=== PATIENT | female | born 1935 | race Caucasian/White ===

== ENCOUNTER 2018-06-05 20:38 | Observation (INO) | payer MEDICARE, OTHER ==
[~2018-06-05] VITALS: Ht 162.6 cm; Wt 163.3 kg
[~2018-06-05 20:38] MED LIST: ABAT250V; ALBU90OI6 INH; ALLO100 PO; ALPR.5; ALPR.5 PO; AMIO200 PO; AMOCLA500 PO; ASCO500; ASCO500 PO; ASCORBIC ACID PO; ASCORBIC ACID SYRUP PO; ASPI325; ASPI325 PO; ASPI325EC PO; ASPI81EC; ATEN25 PO; AUGMENTIN 875-125 PO; AZIT250 PO; Alph-E-Mixed400 UNIT PO; Aspir 8181 MG PO; BENZ100A PO; C Complex1000 MG PO; CALCAVITD PO; CALCAVITDA; CAND16 PO; CAND32; CAND32 PO; CEFU500 PO; CELE200; CEPH500 PO; CIPR500 PO; CLOP75; CONEST.9; CRANBERRY CONC1 EACH PO; CRANBERRY250 MG PO; Cranberry300 MG PO; DOXY100 PO; ENABLEX; ENABLEX PO; ENOX40I SC; EXTRA STRENGTH500 MG PO; Enablex15 MG PO; FISH1000 PO; FLUC150A PO; FURO20 PO; FURO40; FURO40 PO; FURO80; FURO80 PO; GARLIC; GARLIC PO; GNP B-COMPLEX1 EACH PO; GUAN1; GUAN1 PO; GUANFACINE HCL E1 MG PO; GUANFACINE PO; GUAPHELA PO; HYDACE5; HYDGUAL120 PO; HYDMOR2 PO; HYDR-86 PO; ISOMON20 PO; ISOMON30 PO; ITRA100 PO; Isosorbide Dini30 MG PO; Keflex500 MG PO; LACT10SY PO; LEVO750 PO; LEVSOD50; LEVSOD50 PO; LIDO5TP TOP; MAGONATE PO; MAXIMUM DAILY1 EACH PO; MECL12.5 PO; METO50 PO; MULVITA; MULVITA PO; MULVITB&C PO; MULVITMINF; MULVITMINF PO; NIFE30ER; NIFE30ER PO; NITR100CA PO; Norco 5-325 Ta1 EACH PO; OXYACE5T PO; Omeprazole20 M1 PO; PANT40 PO; PHENA100 PO; PHENA200 PO; POTA10T; POTA10T PO; POTA8; POTCHL10ER PO; PRAV20; PRAV20 PO; PRED20 PO; PROACE100 PO; Pacerone100 MG PO; QUIN325; Qualaquin324 MG PO; RXALBOI INH; RXHYD5325 PO; RXTRAM50 PO; SULTRIDS PO; SUPER B COMPLEX PO; Super B Comple150 MG PO; TENEX PO; TENEX1 MG PO; TOCO400; TOCO400 PO; TRAM50 PO; Tenex1 MG GT; VALD20; VERA240ER; VITB100; VITB100 PO; Ventolin Soln3 ML INH; Vitamin D400 UNI2 PO; WARF1 PO; WARF2 PO; Zithromax250 MG PO
[2018-06-05] MEDS ORDERED: Amiodarone HCl200 MG PO (22:36)
[2018-06-05] MEDS ORDERED: ELIQUIS2.5 MG PO (22:36)
[2018-06-05] MEDS ORDERED: ALLO100 PO (22:36)
[2018-06-05] MEDS ORDERED: Tenex1 MG PO (22:37)
[2018-06-05] MEDS ORDERED: PYRI25 (22:37)
[2018-06-05] MEDS ORDERED: CRANBERRY250 MG PO (22:37)
[2018-06-05] MEDS ORDERED: HYDR1TAB94 PO (22:38)
[2018-06-05] MEDS ORDERED: ISOMON20 PO (22:38)
[2018-06-05] MEDS ORDERED: ONDA4ODT MM (22:39)
[2018-06-05] MEDS ORDERED: MECL12.5 PO (22:39)
[2018-06-05] MEDS ORDERED: LEVSOD50 PO (22:39)
[2018-06-05] MEDS ORDERED: PRAV20 PO (22:40)
[2018-06-06 10:04] LABS: Albumin, Blood 2.2 g/dL (3.4-5.0); Albumin/Globulin Ratio 0.8 (0.8-1.8); Bilirubin, Total 0.4 mg/dL (0.1-1.0); Bun/Creatinine Ratio 14.2 (12.0-20.0); Calcium, Blood 6.7 mg/dL (8.5-10.1); Creatinine, Blood 1.2 mg/dL (0.40-1.00); Globulin, Blood 2.9 g/dL (2.2-4.0); Potassium, Blood 4.5 mmol/L (3.5-5.5); Total Protein, Blood 5.1 g/dL (6.4-8.2); Troponin I 0.034 ng/mL (0.000-0.040)
[2018-06-06 10:25] LABS: BASOPHILS ABSOLUTE AUTO 0.02 K/mm3 (0.00-0.23); BASOPHILS PERCENT AUTO 0 % (0-2); EOSINOPHILS ABSOLUTE AUTO 0.12 K/mm3 (0.00-0.68); EOSINOPHILS PERCENT AUTO 1 % (0-6); Hematocrit 31.9 % (33.0-51.0); Hemoglobin 9.7 g/dL (11.5-16.0); IMMATURE GRAN ABSOLUTE AUTO 0.11 K/mm3 (0.00-0.10); IMMATURE GRAN PERCENT AUTO 1 % (0-1); LYMPHOCYTES ABSOLUTE AUTO 1.12 K/mm3 (0.84-5.20); LYMPHOCYTES PERCENT AUTO 13 % (21-46); MONOCYTES ABSOLUTE AUTO 0.61 K/mm3 (0.16-1.47); MONOCYTES PERCENT AUTO 7 % (4-13); Mean Corpuscular HGB 31.1 pg (26.0-34.0); Mean Corpuscular HGB Conc 30.4 g/dL (31.5-36.5); Mean Corpuscular Volume 102 fL (80-100); Mean Platelet Volume 10.6 fL (9.1-12.4); NEUTROPHILS ABSOLUTE AUTO 6.89 K/mm3 (1.96-9.15); NEUTROPHILS PERCENT AUTO 78 % (41-73); Platelet Count 313 K/mm3 (150-400); RDW Standard Deviation 59.4 fL (35.1-46.3); Red Blood Cell Count 3.12 M/mm3 (3.80-5.20); White Blood Cell Count 8.87 K/mm3 (4.00-11.30)
[2018-06-06 11:24] LABS: Source, Urine Clean Catch
[2018-06-06 11:37] LABS: Appearance, Urine Clear (Clear); Bilirubin, Urine Neg (Neg); Blood, Urine 3+ (Neg); Color, Urine Yellow (P-Yellow); Glucose Qualitative, Urine Neg (Neg); Ketones, Urine Neg (Neg); Leukocyte Esterase, Urine 1+ (Neg); Nitrite, Urine Neg (Neg); Protein, Urine 2+ (Neg); Specific Gravity, Urine 1.015 (1.003-1.022); Urobilinogen, Urine NORM (Normal)
[2018-06-06 12:09] LABS: Red Blood Cells, Urine 25-50 /hpf (0-2)
[2018-06-06 12:10] LABS: Bacteria Rare /hpf; Squamous Epithelial Cells Rare /hpf (Few); Transitional Epithelial Cells Few /hpf (0-Rare)
[2018-06-06 17:29] LABS: Hematocrit 29.2 % (33.0-51.0); Hemoglobin 8.9 g/dL (11.5-16.0)
[2018-06-06 17:57] LABS: Percent Saturation 16.1 % (15.0-50.0)
[2018-06-06] MEDS ORDERED: DARIFENACIN ER15 MG PO (20:45)
[2018-06-06] MEDS ORDERED: CHOL10002 PO (20:51)
[2018-06-06] MEDS ORDERED: MIRALAX17 GM PO (20:52)
--- NOTE | 2018-06-06 22:19 | NUR ---
PATIENT ARRIVED TO THE ROOM 335 VIA GURNEY. ORIENTED TO ROOM AND UNIT. ADMISSION COMPLETED. PATIENT ABLE TO ASK QUESTIONS. SHE IS PLEASANT AND COOPERATIVE WITH CARE. STAYING AT BEDSIDE. WILL CONT TO MONITOR.
[2018-06-06 22:26] LABS: Hematocrit 30.4 % (33.0-51.0); Hemoglobin 9.1 g/dL (11.5-16.0)
[2018-06-07 05:32] LABS: Hematocrit 30.3 % (33.0-51.0); Hemoglobin 8.8 g/dL (11.5-16.0); Mean Corpuscular HGB 30.8 pg (26.0-34.0); Mean Platelet Volume 10.7 fL (9.1-12.4); Platelet Count 258 K/mm3 (150-400); RDW Coefficient Variation 16.3 % (11.7-14.2); RDW Standard Deviation 63.3 fL (35.1-46.3); Red Blood Cell Count 2.86 M/mm3 (3.80-5.20); White Blood Cell Count 8.27 K/mm3 (4.00-11.30)
[2018-06-07 05:33] LABS: Mean Corpuscular Volume 106 fL (80-100)
[2018-06-07 06:05] LABS: Bun/Creatinine Ratio 15.7 (12.0-20.0); Calcium, Blood 8.2 mg/dL (8.5-10.1); Creatinine, Blood 1.34 mg/dL (0.40-1.00); Potassium, Blood 4.9 mmol/L (3.5-5.5)
--- NOTE | 2018-06-07 08:03 | NUR ---
SHIFT SUMMARY: NO ACUTE CHANGES TO REPORT THIS SHIFT. PT A&O; CALM AND COOPERATIVE WITH CARE. NO C/O PAIN THIS SHIFT. PT SLEPT SOUNDLY T/O SHIFT. NS @ 100 X1 BAG. WEAKNESS; 1-2 ASSIST TO BSC. REPORT GIVEN TO ONCOMING RN.
--- NOTE | 2018-06-07 18:04 | NUR ---
SHIFT SUMMARY PT HAS BEEN UP TO BSC ONLY AND EXCERCISED WITH PT AND OT. 1 PERSON ASSIST AND ONLY SBA. ABLE TO GET HERSELF UP AND TRANSFERRED WITH GAIT BELT ON AND FWW. REPORTS PAIN PRIMARILY TO RLQ FROM RECENT KIDNEY STONE INJURY AND REMOVAL. AT BEDSIDE THROUGHOUT DAY.
[2018-06-08 05:46] LABS: Hematocrit 29.4 % (33.0-51.0); Hemoglobin 8.8 g/dL (11.5-16.0)
--- NOTE | 2018-06-08 06:09 | NUR ---
*SHIFT SUMMARY* PATIENT ALERT AND ORIENTED. PT'S AT BEDSIDE. AT BEGINING OF THE SHIFT PATIENT REPORTS STILL HAVING PAIN AFTER TYLENOL. THIS RN EDUCATED PATIENT THAT SHE COULD HAVE NORCO IF SHE WANTED TO TRY. PATIENT STATES SHE HAS NEVER HAD THIS MEDICATION BEFORE AND IS SOMETIMES SENSITIVE TO PAIN MEDICATIONS. THIS RN ASKED PATIENT WHAT HAPPENS WHEN SHE TAKES THEM, PATIENT STATES THAT SHE SAYS WEIRD STUFF. THIS RN ASKED IF SHE WANTED TO TRY THE NORCO. PATIENT STATED SHE DID. ADMINISTERED ORDERED, REEVALUATED PATIENT TO SEE IF SHE FELT "WEIRD" PATIENT STATED SHE FELT OK BUT A LITTLE FUNNY AND THE PAIN HAD DECREASED. PATIENT IS A 2 ASSIST TO GET OUT OF THE BED, SHE HAS A HARD TIME MOVING HER LEGS TO THE EDGE OF THE BED. ONCE SHE STANDS SHE IS A 1 ASSIST WITH FWW AND GAIT BELT. PATIENT WAS ON ROOM AIR UNTIL BED TIME. SLIGHT SOB WITH EXERTION. CALL LIGHT WITHIN REACH, BED LOWERED AND LOCKED.
[2018-06-08] MEDS ORDERED: CHOL10002 (11:54)
[2018-06-08] MEDS ORDERED: TRAM50 PO (11:55)
--- NOTE | 2018-06-08 15:13 | NUR ---
REVIEW D'C INSTRUCTIONS. AWARE TO GET RX FILLED. AWARE TO HAVE BLD DRAW IN 2 DAYS. GIVEN NUMBER TO SCHEDULE DRAW AT HER RESIDENCE. VARIOUS SUPPLIES GIVEN--BLUE UNDERPADS, UNDERWEAR, & MAXIPADS. AWARE TO MAKE APPT W/PCP AND UROLOGIST. GIVEN NAMES AND NUMBERS OF 2 UROLOGISTS IN [place]& 2 IN [place]. RONIT CAME AND SUPPLIED PATIENT WITH PORTABLE OXYGEN. FILM AND VIDEO EDITOR TALKED TO PATIENT ABOUT WHEELCHAIR AND PATIENT STS GRANDSON WILL BRING IN HERS FROM HER VAN. GRANDSON BROUGHT IN CLOTHES. DOWN IN POV WITH TRIM STENCIL MAKER AND MULTIPLE RELATIVES. ASSISTED INTO VEHICLE. PATIENT HAS ARRANGED TO STAY AT [facility].
== END 2018-06-08 15:00 | disposition home health service (06) ==
LOC: ER 20:38 → ERHOLD 06-06 13:51 → MEDS 06-06 20:07
PROVIDERS: Emergency Medicine; ADMIT Internal Medicine
DX: R53.1 Weakness (principal); S37.011A Minor contusion of right kidney, initial encounter; J96.11 Chronic respiratory failure with hypoxia; I13.0 Hypertensive heart and chronic kidney disease with heart failure and stage 1 through stage 4 chronic kidney disease, or unspecified chronic kidney disease; I50.32 Chronic diastolic (congestive) heart failure; N18.3 Chronic kidney disease, stage 3 (moderate); D63.1 Anemia in chronic kidney disease; I48.2 Chronic atrial fibrillation; I73.9 Peripheral vascular disease, unspecified; C50.912 Malignant neoplasm of unspecified site of left female breast; D50.9 Iron deficiency anemia, unspecified; E87.1 Hypo-osmolality and hyponatremia; E03.9 Hypothyroidism, unspecified; E78.5 Hyperlipidemia, unspecified; E66.2 Morbid (severe) obesity with alveolar hypoventilation; E87.0 Hyperosmolality and hypernatremia; M10.9 Gout, unspecified; Z85.118 Personal history of other malignant neoplasm of bronchus and lung; Z86.73 Personal history of transient ischemic attack (TIA), and cerebral infarction without residual deficits; Z90.2 Acquired absence of lung [part of]; Z79.01 Long term (current) use of anticoagulants; Z79.02 Long term (current) use of antithrombotics/antiplatelets; Z79.899 Other long term (current) drug therapy; Z88.5 Allergy status to narcotic agent; Z99.81 Dependence on supplemental oxygen; Z98.890 Other specified postprocedural states; Z95.0 Presence of cardiac pacemaker; Z68.44 Body mass index [BMI] 60.0-69.9, adult
CPT/HCPCS: 36415; 71045; 76770; 80048; 80053; 81001; 82607; 82728; 82746; 83540; 83550; 84443; 84484; 85014; 85018; 85025; 85027; 87077; 87086; 87186; 93005; 93010; 96360; 96361; 97161; 97166; 97530; 97535; 99285-25; G0378; J7030; P9612

== ENCOUNTER → 2018-06-28 | Outpatient (CLI) | payer MEDICARE, OTHER ==
[~2018-06-28] MED LIST changes: +Amiodarone HCl200 MG PO; +CHOL10002; +CHOL10002 PO; +DARIFENACIN ER15 MG PO; +ELIQUIS2.5 MG PO; +HYDR1TAB94 PO; +MIRALAX17 GM PO; +ONDA4ODT MM; +PYRI25; +Tenex1 MG PO
[2018-06-28 09:56] LABS: Bilirubin, Urine Neg (Neg); Blood, Urine 5+ (Neg); Glucose Qualitative, Urine Neg (Neg); Ketones, Urine Neg (Neg); Leukocyte Esterase, Urine 1+ (Neg); Nitrite, Urine Neg (Neg); Protein, Urine 2+ (Neg); Urobilinogen, Urine NORM (Normal)
[2018-06-28 10:08] LABS: Appearance, Urine Hazy (Clear); Color, Urine Yellow (P-Yellow)
[2018-06-28 10:10] LABS: Amorphous Mod (0-Heavy); Bacteria Mod /hpf; Red Blood Cells, Urine TNTC /hpf (0-2); Squamous Epithelial Cells Not Seen /hpf (Few)
== END ==
LOC: LAB 09:14 → LAB SHORT 09:14
PROVIDERS: Family Medicine
DX: N30.01 Acute cystitis with hematuria (principal)
CPT/HCPCS: 81001; 87077; 87086; 87186

== ENCOUNTER 2018-08-12 07:00 | Day surgery (SDC) | payer MEDICARE, OTHER | END 2018-08-12 23:03 | disposition home or self-care (01) | LOC: MOI US 07:00 | DX: C50.112 Malignant neoplasm of central portion of left female breast (principal); C77.3 Secondary and unspecified malignant neoplasm of axilla and upper limb lymph nodes; Z17.0 Estrogen receptor positive status [ER+] | CPT/HCPCS: 38505; 76942; 88305; 88360; A4648 ==

== ENCOUNTER → 2018-09-09 | Outpatient (CLI) | payer MEDICARE, OTHER ==
[~2018-09-09] MED LIST changes: +LETR2.5 PO; +MOTION RELIEF25 MG PO; +Micro-K10 MEQ PO; +Pravastatin Sod80 MG PO; +RAYALDEE30 MCG PO
[2018-09-09 16:00] LABS: BASOPHILS ABSOLUTE AUTO 0.01 K/mm3 (0.00-0.23); BASOPHILS PERCENT AUTO 0 % (0-2); EOSINOPHILS PERCENT AUTO 2 % (0-6); Hematocrit 40.3 % (33.0-51.0); Hemoglobin 13.4 g/dL (11.5-16.0); IMMATURE GRAN ABSOLUTE AUTO 0.04 K/mm3 (0.00-0.10); IMMATURE GRAN PERCENT AUTO 1 % (0-1); LYMPHOCYTES PERCENT AUTO 25 % (21-46); MONOCYTES ABSOLUTE AUTO 0.88 K/mm3 (0.16-1.47); MONOCYTES PERCENT AUTO 10 % (4-13); Mean Corpuscular HGB 30.7 pg (26.0-34.0); Mean Corpuscular HGB Conc 33.3 g/dL (31.5-36.5); Mean Platelet Volume 10.8 fL (9.1-12.4); NEUTROPHILS ABSOLUTE AUTO 5.44 K/mm3 (1.96-9.15); NEUTROPHILS PERCENT AUTO 62 % (41-73); Platelet Count 203 K/mm3 (150-400); RDW Coefficient Variation 14.6 % (11.7-14.2); RDW Standard Deviation 49.9 fL (35.1-46.3); Red Blood Cell Count 4.37 M/mm3 (3.80-5.20); White Blood Cell Count 8.77 K/mm3 (4.00-11.30)
[2018-09-09 16:01] LABS: Mean Corpuscular Volume 92 fL (80-100)
[2018-09-09 16:02] LABS: Bun/Creatinine Ratio 16.1 (12.0-20.0); Calcium, Blood 9.5 mg/dL (8.5-10.1); Creatinine, Blood 1.55 mg/dL (0.40-1.00); Potassium, Blood 4.5 mmol/L (3.5-5.5)
== END | disposition home or self-care (01) ==
LOC: LAB EV 15:52 → LAB SHORT 15:52
PROVIDERS: Physician Assistant Surgical
DX: J18.9 Pneumonia, unspecified organism (principal)
CPT/HCPCS: 80048; 85025

== ENCOUNTER 2018-09-12 18:08 | Inpatient (IN) | payer MEDICARE, OTHER ==
[~2018-09-12] VITALS: Ht 162.6 cm; Wt 128.1 kg
[~2018-09-12 18:08] MED LIST changes: -LETR2.5 PO; -Micro-K10 MEQ PO; -Pravastatin Sod80 MG PO; -RAYALDEE30 MCG PO
[2018-09-12 19:04] LABS: BASOPHILS ABSOLUTE AUTO 0.01 K/mm3 (0.00-0.23); BASOPHILS PERCENT AUTO 0 % (0-2); EOSINOPHILS ABSOLUTE AUTO 0.07 K/mm3 (0.00-0.68); EOSINOPHILS PERCENT AUTO 1 % (0-6); Hemoglobin 11.9 g/dL (11.5-16.0); IMMATURE GRAN ABSOLUTE AUTO 0.05 K/mm3 (0.00-0.10); IMMATURE GRAN PERCENT AUTO 1 % (0-1); LYMPHOCYTES ABSOLUTE AUTO 1.43 K/mm3 (0.84-5.20); LYMPHOCYTES PERCENT AUTO 17 % (21-46); MONOCYTES ABSOLUTE AUTO 0.86 K/mm3 (0.16-1.47); MONOCYTES PERCENT AUTO 10 % (4-13); Mean Corpuscular HGB Conc 32.2 g/dL (31.5-36.5); Mean Platelet Volume 10.8 fL (9.1-12.4); NEUTROPHILS ABSOLUTE AUTO 6.06 K/mm3 (1.96-9.15); NEUTROPHILS PERCENT AUTO 72 % (41-73); Platelet Count 195 K/mm3 (150-400); RDW Coefficient Variation 14.7 % (11.7-14.2); RDW Standard Deviation 51.9 fL (35.1-46.3); Red Blood Cell Count 3.84 M/mm3 (3.80-5.20); White Blood Cell Count 8.48 K/mm3 (4.00-11.30)
[2018-09-12 19:06] LABS: Mean Corpuscular Volume 96 fL (80-100)
[2018-09-12 19:29] LABS: Albumin, Blood 3.2 g/dL (3.4-5.0); Albumin/Globulin Ratio 0.7 (0.8-1.8); Bilirubin, Total 0.5 mg/dL (0.1-1.0); Bun/Creatinine Ratio 14.7 (12.0-20.0); Calcium, Blood 9.3 mg/dL (8.5-10.1); Creatinine, Blood 1.56 mg/dL (0.40-1.00); Globulin, Blood 4.4 g/dL (2.2-4.0); Potassium, Blood 4.7 mmol/L (3.5-5.5); Total Protein, Blood 7.6 g/dL (6.4-8.2)
[2018-09-12] MEDS ORDERED: Norco 5-325 Ta1 EACH PO (20:07)
[2018-09-12] MEDS ORDERED: NIFE30ER PO (20:11)
[2018-09-12] MEDS ORDERED: FURO20 PO (20:11)
[2018-09-12] MEDS ORDERED: Micro-K10 MEQ PO (20:12)
[2018-09-12] MEDS ORDERED: LETR2.5 PO (20:13)
[2018-09-12] MEDS ORDERED: Pravastatin Sod80 MG PO (20:53)
[2018-09-12] MEDS ORDERED: RAYALDEE30 MCG PO (20:54)
[2018-09-13 04:04] LABS: Adenovirus Not Detected (NOT DETECT); Bordetella pertussis Not Detected (NOT DETECT); Chlamydophila pneumoniae Not Detected (NOT DETECT); Coronavirus 229E Not Detected (NOT DETECT); Coronavirus HKU1 Not Detected (NOT DETECT); Coronavirus NL63 Not Detected (NOT DETECT); Coronavirus OC43 Not Detected (NOT DETECT); Human Metapneumovirus Not Detected (NOT DETECT); Human Rhinovirus/Enterovirus Detected (NOT DETECT); Influenza A Not Detected (NOT DETECT); Influenza A/2009-H1 Not Detected (NOT DETECT); Influenza A/H1 Not Detected (NOT DETECT); Influenza A/H3 Not Detected (NOT DETECT); Influenza B Not Detected (NOT DETECT); Mycoplasma pneumoniae Not Detected (NOT DETECT); Parainfluenza Virus 1 Not Detected (NOT DETECT); Parainfluenza Virus 2 Not Detected (NOT DETECT); Parainfluenza Virus 3 Not Detected (NOT DETECT); Parainfluenza Virus 4 Not Detected (NOT DETECT); Respiratory Syncytial Virus Not Detected (NOT DETECT)
[2018-09-13 05:14] LABS: Bun/Creatinine Ratio 16.3 (12.0-20.0); Calcium, Blood 9.1 mg/dL (8.5-10.1); Creatinine, Blood 1.66 mg/dL (0.40-1.00); Potassium, Blood 4.8 mmol/L (3.5-5.5)
[2018-09-14] MEDS ORDERED: ALBU2.5V5 INH (11:32)
[2018-09-14] MEDS ORDERED: BENZ100A PO (11:33)
[2018-09-14] MEDS ORDERED: ROBITUSSIN COU237 ML PO (11:34)
[2018-09-14] MEDS ORDERED: ALBU3IS INH (11:35)
[2018-09-14] MEDS ORDERED: MUCUS ER600 MG PO (11:35)
[2018-09-14] MEDS ORDERED: LEVO750 PO (11:36)
[2018-09-14] MEDS ORDERED: PRED10 PO (11:38)
== END 2018-09-14 14:54 | disposition home or self-care (01) | DRG 193 ==
LOC: ER 18:08 → MEDS 22:16 → ENPENDDIS 09-14 10:53 → MEDS 09-14 14:54
PROVIDERS: Physician Assistant; ADMIT Internal Medicine
DX: J18.1 Lobar pneumonia, unspecified organism (principal); J96.21 Acute and chronic respiratory failure with hypoxia; C34.31 Malignant neoplasm of lower lobe, right bronchus or lung; J44.1 Chronic obstructive pulmonary disease with (acute) exacerbation; J44.0 Chronic obstructive pulmonary disease with (acute) lower respiratory infection; I13.0 Hypertensive heart and chronic kidney disease with heart failure and stage 1 through stage 4 chronic kidney disease, or unspecified chronic kidney disease; I50.32 Chronic diastolic (congestive) heart failure; J06.9 Acute upper respiratory infection, unspecified; B97.19 Other enterovirus as the cause of diseases classified elsewhere; Z85.3 Personal history of malignant neoplasm of breast; I48.2 Chronic atrial fibrillation; Z86.73 Personal history of transient ischemic attack (TIA), and cerebral infarction without residual deficits; N18.3 Chronic kidney disease, stage 3 (moderate); E66.9 Obesity, unspecified; Z99.81 Dependence on supplemental oxygen; Z87.891 Personal history of nicotine dependence; Z90.2 Acquired absence of lung [part of]
CPT/HCPCS: 36415; 71046; 80048; 80053; 83880; 84145; 85025; 87070; 87205; 87486; 87581; 87633; 87798; 93005; 93010; 94640; 94760; 94761; 96374; 99285-25; C9113; J1956; J2930

== ENCOUNTER 2018-10-18 07:52 | Day surgery (SDC) | payer MEDICARE, OTHER ==
[~2018-10-18] VITALS: Ht 162.6 cm; Wt 127.2 kg
[~2018-10-18 07:52] MED LIST changes: +ALBU2.5V5 INH; +ALBU3IS INH; +LETR2.5 PO; +MUCUS ER600 MG PO; +Micro-K10 MEQ PO; +PRED10 PO; +Pravastatin Sod80 MG PO; +RAYALDEE30 MCG PO; +ROBITUSSIN COU237 ML PO
--- NOTE | 2018-10-18 10:48 | NUR ---
Arrived via electric wheelchair to Day Surgery. History, Chart, Medications and Allergies reviewed before start of procedure. Patient confirms NPO status and agrees with scheduled surgery. Pre-Op teaching done. Pt verbalizes understanding.
[2018-10-18 11:19] LABS: Bun/Creatinine Ratio 14.4 (12.0-20.0); Calcium, Blood 9.2 mg/dL (8.5-10.1); Creatinine, Blood 1.39 mg/dL (0.40-1.00); Potassium, Blood 4.4 mmol/L (3.5-5.5)
--- NOTE | 2018-10-18 12:15 | NUR ---
RECEIVED REPORT FROM DR LYNCH. PT STATES THAT SHE IS GOING TO BE SICK. RN REMOVED FT AND WAS ASSISTED IN SITTING PT UP. PT CALMED BACK DOWN. RN WAS TOLD THAT PT WAS CLAUSTROPHOBIC. AFTER RN HAD REMOVED F.T. PT DENIED BEING SICK AND WAS RESITNG QUIETLY. PT DENIES PAIN/NAUSEA. 2L [address]
--- NOTE | 2018-10-18 12:46 | NUR ---
1238 4MG IV ZOFRAN WAS GIVEN TO PT WHEN PT STATED " I AM GOING TO BE SICK" RN ASKED PT IF MEDICATION HAS HELPED AND PT STATED "I HOPE SO". PT STATED YES I DO FEEL BETTER.
--- NOTE | 2018-10-18 12:49 | NUR ---
PT MOUTH WAS SWABBED, PT SITTING UP WITH EYES CLOSED. RIGHT NOW FEELING BETTER.
--- NOTE | 2018-10-18 13:27 | NUR ---
TOOK OVER CARE AND RECIEVED RPORT FROM Kandy TINAJERO AT 1310 VSS HOOKED UP TO WARM BLAKET WITH BLOWER. PATIENT REMINDED TO TAKE DEEP BREATHS [facility] HEARING ALARM GOING OFF FOR BELOW 90 % DOES NOT WANT TO WEAR 02 STATES FEELS CLAUSTROPHOBIC WITH IT ON. DENIES ANYTHING TO EAT OR DRINK STATES NAUSEA IS BETTER AND IS HAVING PAIN BUT DOES NOT WANTING ANY PAIN RX
--- NOTE | 2018-10-18 13:49 | NUR ---
STATES SHE IS FEELING BETTER, DENIES ANY NEED FOR RX FOR PAIN OR NAUSEA BUT STATES BOTH IS BETTER DOES NOT FEEL READY TO GO AT THIS KATELYN
--- NOTE | 2018-10-18 14:47 | NUR ---
Discharge instructions reviewed with patient. Patient verbalizes understanding. Copy given to patient to take home. Patient States Post-Procedure ride home has been arranged. Discharged via wheelchair to private car for ride home. GUILLERMO SENT HOME WITH DRAIN CARE INSTRUCITONS AFTER TEACHING PATIENT DAUGHTER AND HOW TO CARE FOR DRAIN AND EMPTY DRAIN. ANSWERED ALL QUESTIONS.
== END 2018-10-18 22:53 | disposition home or self-care (01) ==
LOC: RAD 07:52 → ORSCMMR 07:52 → RAD 22:53
PROVIDERS: Surgery
PROC: 05HM33Z Insertion of Infusion Device into Right Internal Jugular Vein, Percutaneous Approach (ICD-10-PCS; principal; 2018-10-18 10:30)
PROC: 07B60ZX Excision of Left Axillary Lymphatic, Open Approach, Diagnostic (ICD-10-PCS; principal; 2018-10-18 10:30)
PROC: B5131ZA Fluoroscopy of Right Jugular Veins using Low Osmolar Contrast, Guidance (ICD-10-PCS; principal; 2018-10-18 10:30)
DX: C77.3 Secondary and unspecified malignant neoplasm of axilla and upper limb lymph nodes (principal); I10 Essential (primary) hypertension; Z95.828 Presence of other vascular implants and grafts; I48.91 Unspecified atrial fibrillation; E03.9 Hypothyroidism, unspecified; Z79.899 Other long term (current) drug therapy; E66.01 Morbid (severe) obesity due to excess calories; Z68.42 Body mass index [BMI] 45.0-49.9, adult
CPT/HCPCS: 19285; 36415; 77001; 80048; 88305; C1788; J0690; J1100; J1642; J2405; J2704; J2765; J3010; J7120

== ENCOUNTER 2020-02-20 08:33 | Day surgery (SDC) | payer MEDICARE, OTHER ==
[~2020-02-20] VITALS: Ht 162.6 cm; Wt 123.3 kg
[~2020-02-20 08:33] MED LIST changes: +CEFP200 PO; +LEVSOD100 PO; +LORA.5 PO; -Micro-K10 MEQ PO; +Pyridium100 MG PO
--- NOTE | 2020-02-20 10:37 | NUR ---
02/20/20 [facility] Fernando Cota INSTRUMENTS FOR COUNT.
== END 2020-02-20 11:00 | disposition home or self-care (01) ==
LOC: ORSCSDS 08:33
PROVIDERS: Ophthalmology
PROC: 08133Z4 Bypass Left Anterior Chamber to Sclera, Percutaneous Approach (ICD-10-PCS; 2020-02-20)
PROC: 08RK3JZ Replacement of Left Lens with Synthetic Substitute, Percutaneous Approach (ICD-10-PCS; principal; 2020-02-20 10:00)
DX: H25.12 Age-related nuclear cataract, left eye (principal); H40.1120 Primary open-angle glaucoma, left eye, stage unspecified; I10 Essential (primary) hypertension; E66.01 Morbid (severe) obesity due to excess calories; Z68.42 Body mass index [BMI] 45.0-49.9, adult; Z79.01 Long term (current) use of anticoagulants; Z79.899 Other long term (current) drug therapy
CPT/HCPCS: J2001; J2250; J3010; J3301; J7040; V2632

== ENCOUNTER → 2020-03-05 | Outpatient (CLI) | payer MEDICARE, OTHER | END | disposition home or self-care (01) | LOC: LAB SHORT 15:39 → PLD 15:39 | DX: C77.3 Secondary and unspecified malignant neoplasm of axilla and upper limb lymph nodes (principal); Z85.3 Personal history of malignant neoplasm of breast; Z17.0 Estrogen receptor positive status [ER+] | CPT/HCPCS: 88305; 88360 ==

== ENCOUNTER 2020-03-26 10:00 | Day surgery (SDC) | payer MEDICARE, OTHER ==
[~2020-03-26] VITALS: Ht 162.6 cm; Wt 123.8 kg
[2020-03-26 09:37] LABS: Bun/Creatinine Ratio 17.5 (12.0-20.0); Calcium, Blood 9.2 mg/dL (8.5-10.1); Creatinine, Blood 1.37 mg/dL (0.40-1.00); Potassium, Blood 4.2 mmol/L (3.5-5.5)
== END 2020-03-26 12:16 | disposition home or self-care (01) ==
LOC: ORSCSDS 10:00
PROVIDERS: Ophthalmology; Surgery
PROC: 08RJ3JZ Replacement of Right Lens with Synthetic Substitute, Percutaneous Approach (ICD-10-PCS; principal; 2020-03-26 11:30)
DX: H25.11 Age-related nuclear cataract, right eye (principal); I10 Essential (primary) hypertension; Z86.73 Personal history of transient ischemic attack (TIA), and cerebral infarction without residual deficits; H40.1132 Primary open-angle glaucoma, bilateral, moderate stage; E66.9 Obesity, unspecified; Z68.42 Body mass index [BMI] 45.0-49.9, adult; Z79.01 Long term (current) use of anticoagulants; Z79.899 Other long term (current) drug therapy
CPT/HCPCS: 36415; 80048; J2001; J2250; J3010; J3301; J7040; V2632

== ENCOUNTER 2020-03-27 11:59 | Day surgery (SDC) | payer MEDICARE, OTHER ==
[~2020-03-27] VITALS: Ht 162.6 cm; Wt 122.9 kg
--- NOTE | 2020-03-27 12:33 | NUR ---
03/27/20 1233 CHRISTOPHER STEWART MULTIPLE IV ATTEMPTS.
--- NOTE | 2020-03-27 15:17 | NUR ---
03/27/20 1517 Teaberry,Hermila CHEST XRAY FOR MEDIPORT WAS DONE AND PLACEMENT VERIFIED BY DR. TIJERINA.
== END 2020-03-27 15:13 | disposition home or self-care (01) ==
LOC: ORSCSDS 11:59
DX: C50.912 Malignant neoplasm of unspecified site of left female breast (principal); I10 Essential (primary) hypertension; I48.91 Unspecified atrial fibrillation; Z79.01 Long term (current) use of anticoagulants; Z86.73 Personal history of transient ischemic attack (TIA), and cerebral infarction without residual deficits; E66.01 Morbid (severe) obesity due to excess calories; Z68.42 Body mass index [BMI] 45.0-49.9, adult; Z85.118 Personal history of other malignant neoplasm of bronchus and lung; Z79.899 Other long term (current) drug therapy
CPT/HCPCS: 77001; C1788; J0690; J1100; J1642; J2405; J2704; J3010

== ENCOUNTER 2020-04-25 09:16 | Emergency (ER) | payer MEDICARE, OTHER ==
[~2020-04-25] VITALS: Ht 162.6 cm; Wt 121.6 kg
[2020-04-25 10:09] LABS: BASOPHILS ABSOLUTE AUTO 0.01 K/mm3 (0.00-0.23); BASOPHILS PERCENT AUTO 0 % (0-2); EOSINOPHILS PERCENT AUTO 0 % (0-6); Hematocrit 42.3 % (33.0-51.0); Hemoglobin 14.2 g/dL (11.5-16.0); IMMATURE GRAN ABSOLUTE AUTO 0.03 K/mm3 (0.00-0.10); IMMATURE GRAN PERCENT AUTO 0 % (0-1); LYMPHOCYTES ABSOLUTE AUTO 1.15 K/mm3 (0.84-5.20); LYMPHOCYTES PERCENT AUTO 16 % (21-46); MONOCYTES ABSOLUTE AUTO 0.61 K/mm3 (0.16-1.47); MONOCYTES PERCENT AUTO 8 % (4-13); Mean Corpuscular HGB 32.4 pg (26.0-34.0); Mean Corpuscular HGB Conc 33.6 g/dL (31.5-36.5); Mean Corpuscular Volume 97 fL (80-100); Mean Platelet Volume 10.9 fL (9.1-12.4); NEUTROPHILS ABSOLUTE AUTO 5.61 K/mm3 (1.96-9.15); NEUTROPHILS PERCENT AUTO 76 % (41-73); Platelet Count 159 K/mm3 (150-400); RDW Coefficient Variation 13.8 % (11.7-14.2); RDW Standard Deviation 49.2 fL (35.1-46.3); Red Blood Cell Count 4.38 M/mm3 (3.80-5.20); White Blood Cell Count 7.41 K/mm3 (4.00-11.30)
[2020-04-25 10:37] LABS: Albumin, Blood 3.3 g/dL (3.4-5.0); Albumin/Globulin Ratio 0.9 (0.8-1.8); Bilirubin, Total 0.5 mg/dL (0.1-1.0); Bun/Creatinine Ratio 18.2 (12.0-20.0); Calcium, Blood 8.5 mg/dL (8.5-10.1); Creatinine, Blood 1.1 mg/dL (0.40-1.00); Globulin, Blood 3.8 g/dL (2.2-4.0); Potassium, Blood 3.9 mmol/L (3.5-5.5); Total Protein, Blood 7.1 g/dL (6.4-8.2)
[2020-04-25 11:52] LABS: Source, Urine Clean Catch
[2020-04-25 11:57] LABS: Bilirubin, Urine Neg (Neg); Blood, Urine Neg (Neg); Glucose Qualitative, Urine Neg (Neg); Ketones, Urine Neg (Neg); Leukocyte Esterase, Urine Neg (Neg); Nitrite, Urine Neg (Neg); Protein, Urine 2+ (Neg); Specific Gravity, Urine 1.015 (1.003-1.022); Urobilinogen, Urine NORM (Normal); pH, Urine 6.5 (5.0-8.0)
[2020-04-25 12:03] LABS: Appearance, Urine Clear (Clear); Color, Urine Yellow (P-Yellow)
[2020-04-25 12:08] LABS: Bacteria Few /hpf; Red Blood Cells, Urine 0-2 /hpf (0-2); Squamous Epithelial Cells Rare /hpf (Few); White Blood Cells, Urine 0-2 /hpf (0-5)
[2020-04-25] MEDS ORDERED: TRAM50 PO (13:48)
== END 2020-04-25 14:45 | disposition home or self-care (01) ==
LOC: ER 09:16
PROVIDERS: Emergency Medicine
DX: R10.9 Unspecified abdominal pain (principal); I48.20 Chronic atrial fibrillation, unspecified; J44.9 Chronic obstructive pulmonary disease, unspecified; I11.0 Hypertensive heart disease with heart failure; I50.32 Chronic diastolic (congestive) heart failure; Z79.01 Long term (current) use of anticoagulants; Z79.899 Other long term (current) drug therapy; Z88.5 Allergy status to narcotic agent; Z86.718 Personal history of other venous thrombosis and embolism; Z86.73 Personal history of transient ischemic attack (TIA), and cerebral infarction without residual deficits
CPT/HCPCS: 36415; 51701; 74176; 80053; 81001; 83690; 85025; 93005; 93010; 99284-25

== ENCOUNTER 2020-11-21 12:14 | Inpatient (IN) | payer MEDICARE, OTHER ==
[~2020-11-21] VITALS: Ht 162.6 cm; Wt 120.3 kg
[~2020-11-21 12:14] MED LIST changes: -ELIQUIS2.5 MG PO; +ELIQUIS5 M2 PO; +EUTHYROX50 MCG PO; -LEVSOD100 PO; +PRAVASTATIN SOD40 MG PO; -Pravastatin Sod80 MG PO
[2020-11-21 13:12] LABS: BASOPHILS ABSOLUTE AUTO 0.01 K/mm3 (0.00-0.23); BASOPHILS PERCENT AUTO 0 % (0-2); EOSINOPHILS PERCENT AUTO 0 % (0-6); Hematocrit 41.7 % (33.0-51.0); Hemoglobin 13.6 g/dL (11.5-16.0); IMMATURE GRAN ABSOLUTE AUTO 0.02 K/mm3 (0.00-0.10); IMMATURE GRAN PERCENT AUTO 0 % (0-1); LYMPHOCYTES ABSOLUTE AUTO 1.09 K/mm3 (0.84-5.20); LYMPHOCYTES PERCENT AUTO 20 % (21-46); MONOCYTES ABSOLUTE AUTO 0.81 K/mm3 (0.16-1.47); MONOCYTES PERCENT AUTO 15 % (4-13); Mean Corpuscular HGB 31.3 pg (26.0-34.0); Mean Corpuscular HGB Conc 32.6 g/dL (31.5-36.5); Mean Corpuscular Volume 96 fL (80-100); NEUTROPHILS ABSOLUTE AUTO 3.67 K/mm3 (1.96-9.15); NEUTROPHILS PERCENT AUTO 65 % (41-73); Platelet Count 95 K/mm3 (150-400); RDW Coefficient Variation 16.3 % (11.7-14.2); RDW Standard Deviation 57.3 fL (35.1-46.3); Red Blood Cell Count 4.35 M/mm3 (3.80-5.20)
[2020-11-21 13:43] LABS: Alanine Aminotransfer (ALT/SGP 36 U/L (12-78); Albumin, Blood 3.1 g/dL (3.4-5.0); Albumin/Globulin Ratio 0.8 (0.8-1.8); Alk Phos 178 U/L (50-136); Anion Gap 5 mmol/L (6-16); Aspartate Aminotrans (AST/SGOT 64 U/L (12-37); Bilirubin, Total 0.8 mg/dL (0.1-1.0); Blood Urea Nitrogen 16 mg/dL (8-24); Bun/Creatinine Ratio 12.6 (12.0-20.0); CO2, Blood 28 mmol/L (21-32); Calcium, Blood 8.6 mg/dL (8.5-10.1); Chloride, Blood 107 mmol/L (98-108); Creatinine, Blood 1.27 mg/dL (0.40-1.00); Glomerular Filtration Rate 40 (60-); Glucose, Blood 103 mg/dL (70-99); Potassium, Blood 4.3 mmol/L (3.5-5.5); Sodium, Blood 140 mmol/L (136-145); Total Protein, Blood 7.1 g/dL (6.4-8.2); Troponin I <0.015 ng/mL (0.000-0.040)
[2020-11-21] MEDS ORDERED: TIMOLOL MALEATE5 ML RIGHTEYE (17:58)
[2020-11-22 05:31] LABS: BASOPHILS PERCENT AUTO 0 % (0-2); EOSINOPHILS PERCENT AUTO 0 % (0-6); Hematocrit 39.5 % (33.0-51.0); Hemoglobin 12.9 g/dL (11.5-16.0); IMMATURE GRAN ABSOLUTE AUTO 0.01 K/mm3 (0.00-0.10); IMMATURE GRAN PERCENT AUTO 0 % (0-1); LYMPHOCYTES ABSOLUTE AUTO 0.75 K/mm3 (0.84-5.20); LYMPHOCYTES PERCENT AUTO 24 % (21-46); MONOCYTES ABSOLUTE AUTO 0.25 K/mm3 (0.16-1.47); MONOCYTES PERCENT AUTO 8 % (4-13); Mean Corpuscular HGB 31.2 pg (26.0-34.0); Mean Corpuscular HGB Conc 32.7 g/dL (31.5-36.5); Mean Corpuscular Volume 96 fL (80-100); Mean Platelet Volume 11.4 fL (9.1-12.4); NEUTROPHILS ABSOLUTE AUTO 2.16 K/mm3 (1.96-9.15); NEUTROPHILS PERCENT AUTO 68 % (41-73); Platelet Count 83 K/mm3 (150-400); RDW Coefficient Variation 15.9 % (11.7-14.2); RDW Standard Deviation 56.2 fL (35.1-46.3); Red Blood Cell Count 4.13 M/mm3 (3.80-5.20); White Blood Cell Count 3.17 K/mm3 (4.00-11.30)
--- NOTE | 2020-11-22 05:36 | NUR ---
SHIFT SUMMARY: PATIENT ADMITTED TO THE FLOOR LAST NIGHT FOR COVID-19. SHE GOT TESTED 2 DAYS AGO AT A LOCAL CLINIC WHICH WAS POSITIVE. FOR THE LAST THREE DAYS SHE HAS BEEN GETTING WEAKER, SOB, FEVER, LIGHTHEADED, WITH SOME PLEURIC PAIN. EXTENSIVE HX THAT INCLUDES CHF, COPD, AFIB, AND LUNG CANCER, CURRENTLY GETTING CHEMOTHERAPY. YESTERDAY SHE SPIKED A FEVER AT WHICH SHE WAS SUPPOSE TO HAVE TREATMENT BUT THEY SENT HER HERE INSTEAD. AOX3, BASELINE IS MOTERIZED WC R/T HX OF CVA. LS: GOOD INSPIRATION WITH RALES ON EXPIRATION. COUGH NON-PRODUCTIVE. VERY LIGHTHEADED EVEN GETTING TO THE SIDE OF BED AND NOT ABLE TO KEEP BALANCE, NAUSEA WITH SOME DRY HEAVES T/O DIZZY. POOR APPETITE, HEADACHES. CONTINENT. VS WNL, AFEBRILE. GFR 40. SHE IS VACCINATED WITH 2 DOSES OF MODERNA. DOES WEAR O2 AT [facility] BUT RECENTLY HAS BEEN CONTINUOUS NOW ON 4 LITERS WITH SATS HOLDING ABOVE 90. REPEAT COVID TEST SENT. CALL LIGHT IS IN REACH. BED ALARM IS ON.
[2020-11-22 05:57] LABS: Albumin, Blood 2.8 g/dL (3.4-5.0); Albumin/Globulin Ratio 0.8 (0.8-1.8); Bilirubin, Total 0.7 mg/dL (0.1-1.0); Bun/Creatinine Ratio 15.8 (12.0-20.0); Calcium, Blood 8.1 mg/dL (8.5-10.1); Creatinine, Blood 1.2 mg/dL (0.40-1.00); Globulin, Blood 3.7 g/dL (2.2-4.0); Magnesium, Blood 2.4 mg/dL (1.6-2.4); Potassium, Blood 3.8 mmol/L (3.5-5.5); Total Protein, Blood 6.5 g/dL (6.4-8.2)
[2020-11-22 06:28] LABS: SARS-Cov-2 (COVID-19) PCR, MMC POSITIVE (NEGATIVE)
[2020-11-23 05:39] LABS: BASOPHILS ABSOLUTE AUTO 0.01 K/mm3 (0.00-0.23); BASOPHILS PERCENT AUTO 0 % (0-2); EOSINOPHILS PERCENT AUTO 0 % (0-6); Hemoglobin 13.9 g/dL (11.5-16.0); IMMATURE GRAN ABSOLUTE AUTO 0.02 K/mm3 (0.00-0.10); IMMATURE GRAN PERCENT AUTO 0 % (0-1); LYMPHOCYTES ABSOLUTE AUTO 0.91 K/mm3 (0.84-5.20); LYMPHOCYTES PERCENT AUTO 17 % (21-46); MONOCYTES ABSOLUTE AUTO 0.48 K/mm3 (0.16-1.47); MONOCYTES PERCENT AUTO 9 % (4-13); Mean Corpuscular HGB 30.4 pg (26.0-34.0); Mean Corpuscular HGB Conc 32.3 g/dL (31.5-36.5); Mean Corpuscular Volume 94 fL (80-100); Mean Platelet Volume 11.8 fL (9.1-12.4); NEUTROPHILS ABSOLUTE AUTO 4.09 K/mm3 (1.96-9.15); NEUTROPHILS PERCENT AUTO 74 % (41-73); Platelet Count 92 K/mm3 (150-400); RDW Coefficient Variation 15.7 % (11.7-14.2); RDW Standard Deviation 54.2 fL (35.1-46.3); Red Blood Cell Count 4.57 M/mm3 (3.80-5.20); White Blood Cell Count 5.51 K/mm3 (4.00-11.30)
[2020-11-23 05:47] LABS: Anion Gap 7 mmol/L (6-16); Blood Urea Nitrogen 28 mg/dL (8-24); Bun/Creatinine Ratio 23.9 (12.0-20.0); CO2, Blood 31 mmol/L (21-32); Calcium, Blood 8.8 mg/dL (8.5-10.1); Chloride, Blood 100 mmol/L (98-108); Creatinine, Blood 1.17 mg/dL (0.40-1.00); Glomerular Filtration Rate 44 (60-); Glucose, Blood 121 mg/dL (70-99); Phosphorus, Blood 3.6 mg/dL (2.5-4.9); Potassium, Blood 3.4 mmol/L (3.5-5.5); Sodium, Blood 138 mmol/L (136-145)
--- NOTE | 2020-11-23 08:13 | NUR ---
SHIFT SUMMARY: SONAM DID VERY WELL ALL NIGHT. SHE HAS BEEN ABLE TO GET UP AND MOVE TO THE COMMODE BY HERSELF. VS HAVE BEEN WNL. LUNG SOUNDS ARE FINE CRACKLES IN THE BASES. SATS REMAIN .4LITERS ON RA. AOX3. COUGH IS MINIMAL. SOB ONLY WITH EXERTION. NO OTHER ACUTE CHANGES THIS SHIFT. CALL LIGHT IN REACH.
--- NOTE | 2020-11-23 20:18 | NUR ---
SUMMARY- PT A/O X4. UP INDEPENDANT TO BSC. USES CALL LIGHT TO AMBULATE TO BATHROOM WITH WALKER. STEADY ON FEET, MIN SOB WITH ACTIVITY, OXYGEN 4L NC. LUNGS CX L BASE DIM R (HS RLL LOBECTOMY). PT HAD DIARRHEA TODAY STATED LOOSE STOOL X4. TOLERATED FOOD AND FLUIDS. REPORTED TO NOC TANVI.
--- NOTE | 2020-11-24 00:16 | NUR ---
11/23/202134 PT LYING IN BED, REPORTS PAIN IN LCW AND L BACK THAT SHE STATES HAS BEEN THERE ALL DAY BUT THAT IT IS BETTER NOW THAN EARLIER, WILL MEDICATE AND EVAL FOR EFFECT. REPORTS SOB THAT INCREASES W/EXERTION, ON 3.5L O2 NC AT 96%. NO OTHER APPARENT SIGNS OF DISTRESS. CALL LIGHT IS IN REACH.
--- NOTE | 2020-11-24 00:57 | NUR ---
PT LYING IN BED, EYES CLOSED, APPEARS TO BE RESTING. BREATHING IS EVEN, UNLABORED. NO APPARENT SIGNS OF DISTRESS. CALL LIGHT IS IN REACH.
--- NOTE | 2020-11-24 02:48 | NUR ---
PT LYING IN BED, EYES CLOSED, APPEARS TO BE RESTING. BREATHING IS EVEN, UNLABORED. NO APPARENT SIGNS OF DISTRESS. CALL LIGHT IS IN REACH.
--- NOTE | 2020-11-24 04:40 | NUR ---
PT LYING IN BED, EYES CLOSED, APPEARS TO BE RESTING. WAKES EASILY TO VERBAL STIMULI. NO APPARENT SIGNS OF DISTRESS. DENIES NEED FOR ANYTHING AT THIS TIME. CALL LIGHT IS IN REACH.
--- NOTE | 2020-11-24 04:40 | NUR ---
PT IS AAO X 4, ON 3L NC O2 AT 96%. PT REPORTS SOB WITH EXERTION. PT REPORTS PAIN IN L CW AND L BACK, THIS IS NOT NEW. PT GOT TYLENOL AT [facility].
--- NOTE | 2020-11-24 05:45 | NUR ---
PT LYING IN BED, EYES CLOSED, APPEARS TO BE RESTING. BREATHING IS EVEN, UNLABORED. NO APPARENT SIGNS OF DISTRESS. CALL LIGHT IS IN REACH. NO OTHER CHANGES THIS SHIFT.
[2020-11-24 05:46] LABS: BASOPHILS PERCENT AUTO 0 % (0-2); EOSINOPHILS PERCENT AUTO 0 % (0-6); Hematocrit 45.2 % (33.0-51.0); Hemoglobin 14.8 g/dL (11.5-16.0); IMMATURE GRAN ABSOLUTE AUTO 0.04 K/mm3 (0.00-0.10); IMMATURE GRAN PERCENT AUTO 1 % (0-1); LYMPHOCYTES PERCENT AUTO 17 % (21-46); MONOCYTES ABSOLUTE AUTO 0.72 K/mm3 (0.16-1.47); MONOCYTES PERCENT AUTO 10 % (4-13); Mean Corpuscular HGB 30.7 pg (26.0-34.0); Mean Corpuscular HGB Conc 32.7 g/dL (31.5-36.5); Mean Corpuscular Volume 94 fL (80-100); Mean Platelet Volume 12.2 fL (9.1-12.4); NEUTROPHILS ABSOLUTE AUTO 5.04 K/mm3 (1.96-9.15); NEUTROPHILS PERCENT AUTO 72 % (41-73); Platelet Count 95 K/mm3 (150-400); RDW Coefficient Variation 15.8 % (11.7-14.2); RDW Standard Deviation 54.6 fL (35.1-46.3); Red Blood Cell Count 4.82 M/mm3 (3.80-5.20)
[2020-11-24 06:04] LABS: Albumin, Blood 3.1 g/dL (3.4-5.0); Anion Gap 7 mmol/L (6-16); Blood Urea Nitrogen 38 mg/dL (8-24); Bun/Creatinine Ratio 27.1 (12.0-20.0); CO2, Blood 34 mmol/L (21-32); Calcium, Blood 8.9 mg/dL (8.5-10.1); Chloride, Blood 99 mmol/L (98-108); Glomerular Filtration Rate 36 (60-); Glucose, Blood 110 mg/dL (70-99); Phosphorus, Blood 3.7 mg/dL (2.5-4.9); Potassium, Blood 3.6 mmol/L (3.5-5.5); Sodium, Blood 140 mmol/L (136-145)
--- NOTE | 2020-11-24 19:35 | NUR ---
SUMMARY- PT STATES SHE FEELS WORSE TODAY, LESS ENERGY. STILL GETS UP TO BSC INDEPENDANT AND USES WALKER AND SBA TO BATHROOM. TOLERATING FOOD AND FLUIDS BUT STATES SHE'S TRYING NOT TO DRINK TOO MUCH WATER SO SHE DOESNT HAVE TO GET UP AND PEE. PT ENC TO DRINK MOD FLUIDS. PT STATED A PAIN IN R NECK, THINKS IT'S FROM A KINK FROM SLEEPING. ALSO COMPLAINED TODAY OF THE SAME ON/OFF MID STERNAL CHEST PRESSURE THAT RADIATES TO BACK AND COMES AND GOES HAD THOUGHT IT WAS RELATED TO HEARTBURN BUT NOW WONDERS IF IT'S NOT CARDIAC. CALL PLACED TO DR SALCEDO. ORDERS ABTAINED FOR US R NECK. TROPONIN AND CXR. WILL FU. PT CONT TO HAVE CX IN L BASE. DRY TICKELY COUGH. ON 2L O2, MIN SOB WITH ACTIVITY.
--- NOTE | 2020-11-24 21:52 | NUR ---
1953 PT LYING IN BED, REPORTS SOB THAT INCREASES WITH EXERTION, ON 2L NC O2 AT 92%. REPORTS PAIN IN LCW AND L BACK, NOT NEW, AT 07/20, GAVE TYLENOL. REPORTS HEARTBURN, GAVE TUMS, WILL EVAL FOR EFFECT. NO OTHER APPARENT SIGNS OF DISTRESS. CALL LIGHT IS IN REACH.
--- NOTE | 2020-11-24 23:08 | NUR ---
PT LYING IN BED, EYES CLOSED, APPEARS TO BE RESTING. BREATHING IS EVEN, UNLABORED. NO APPARENT SIGNS OF DISTRESS. CALL LIGHT IS IN REACH.
--- NOTE | 2020-11-25 00:13 | NUR ---
PT LYING IN BED, EYES CLOSED, APPEARS TO BE RESTING. BREATHING IS EVEN, UNLABORED. NO APPARENT SIGNS OF DISTRESS. CALL LIGHT IS IN REACH.
--- NOTE | 2020-11-25 02:00 | NUR ---
PT LYING IN BED, EYES CLOSED, APPEARS TO BE RESTING. BREATHING IS EVEN, UNLABORED. NO APPARENT SIGNS OF DISTRESS. CALL LIGHT IS IN REACH.
--- NOTE | 2020-11-25 03:31 | NUR ---
PT LYING IN BED, EYES CLOSED, APPEARS TO BE RESTING. WAKES EASILY TO VERBAL STIMULI. NO APPARENT SIGNS OF DISTRSS. CALL LIGHT IS IN REACH.
--- NOTE | 2020-11-25 03:31 | NUR ---
PT IS AAO X 4, ON 2L NC O2 AT 92%. SOB THAT INCREASES WITH EXERTION. PAIN IN LCW AND L BACK THAT IS NOT NEW, GOT TYLENOL. HEARTBURN, GOT TUMS.
--- NOTE | 2020-11-25 05:35 | NUR ---
PT LYING IN BED, EYES CLOSED, APPEARS TO BE RESTING. BREATHING IS EVEN, UNLABORED. NO APPARENT SIGNS OF DISTRESS. CALL LIGHT IS IN REAHC. NO OTHER CHANGES THIS SHIFT.
[2020-11-25] MEDS ORDERED: ALBU90OI INH (16:47)
[2020-11-25] MEDS ORDERED: TIMO.25OPS RIGHTEYE (17:29)
[2020-12-01] MEDS ORDERED: Monodox100 MG PO (10:52)
== END 2020-11-25 19:00 | disposition home health service (06) | DRG 177 ==
LOC: ER 12:14 → ERHOLD 15:08 → MEDS 15:08
PROVIDERS: Family Medicine; Nurse Practitioner Acute Care; Physician Assistant; ADMIT Hospitalist
PROC: 8E0ZXY6 Isolation (ICD-10-PCS; principal; 2020-11-21)
PROC: 3E0333Z Introduction of Anti-inflammatory into Peripheral Vein, Percutaneous Approach (ICD-10-PCS; 2020-11-21)
PROC: XW033E5 Introduction of Remdesivir Anti-infective into Peripheral Vein, Percutaneous Approach, New Technology Group 5 (ICD-10-PCS; 2020-11-21)
DX: U07.1 COVID-19 (principal); J12.82 Pneumonia due to coronavirus disease 2019; J96.21 Acute and chronic respiratory failure with hypoxia; J44.0 Chronic obstructive pulmonary disease with (acute) lower respiratory infection; I48.20 Chronic atrial fibrillation, unspecified; I50.32 Chronic diastolic (congestive) heart failure; Z68.42 Body mass index [BMI] 45.0-49.9, adult; I13.0 Hypertensive heart and chronic kidney disease with heart failure and stage 1 through stage 4 chronic kidney disease, or unspecified chronic kidney disease; A08.39 Other viral enteritis; C50.919 Malignant neoplasm of unspecified site of unspecified female breast; Z96.653 Presence of artificial knee joint, bilateral; E66.01 Morbid (severe) obesity due to excess calories; G47.33 Obstructive sleep apnea (adult) (pediatric); E87.6 Hypokalemia; D69.59 Other secondary thrombocytopenia; N18.30 Chronic kidney disease, stage 3 unspecified; D70.1 Agranulocytosis secondary to cancer chemotherapy; T45.1X5A Adverse effect of antineoplastic and immunosuppressive drugs, initial encounter; E03.9 Hypothyroidism, unspecified; Z88.5 Allergy status to narcotic agent; Z92.21 Personal history of antineoplastic chemotherapy; Z86.718 Personal history of other venous thrombosis and embolism; Z86.73 Personal history of transient ischemic attack (TIA), and cerebral infarction without residual deficits; Z85.118 Personal history of other malignant neoplasm of bronchus and lung; Z90.2 Acquired absence of lung [part of]; Z90.49 Acquired absence of other specified parts of digestive tract; Z90.710 Acquired absence of both cervix and uterus; Z98.890 Other specified postprocedural states; Z90.89 Acquired absence of other organs; Z85.828 Personal history of other malignant neoplasm of skin; Z95.0 Presence of cardiac pacemaker; Z95.828 Presence of other vascular implants and grafts; Z99.81 Dependence on supplemental oxygen; Z79.899 Other long term (current) drug therapy; Z79.01 Long term (current) use of anticoagulants
CPT/HCPCS: 36415; 71045; 76536; 80053; 80069; 83690; 83735; 83880; 84484; 85025; 93005; 93010; 94762; 96374; 96375; 97110; 97116; 97161; 97167; 97530; 97535; 99285-25; A9270; J1100; J1885; J2405; U0004

== ENCOUNTER 2020-11-30 17:24 | Emergency (ER) | payer MEDICARE, OTHER ==
[~2020-11-30] VITALS: Ht 162.6 cm; Wt 117.9 kg
[~2020-11-30 17:24] MED LIST changes: +ALBU90OI INH; +TIMO.25OPS RIGHTEYE; +TIMOLOL MALEATE5 ML RIGHTEYE
[2020-11-30 17:48] LABS: BASOPHILS ABSOLUTE AUTO 0.01 K/mm3 (0.00-0.23); BASOPHILS PERCENT AUTO 0 % (0-2); EOSINOPHILS ABSOLUTE AUTO 0.03 K/mm3 (0.00-0.68); EOSINOPHILS PERCENT AUTO 0 % (0-6); Hematocrit 38.2 % (33.0-51.0); Hemoglobin 12.7 g/dL (11.5-16.0); IMMATURE GRAN ABSOLUTE AUTO 0.11 K/mm3 (0.00-0.10); IMMATURE GRAN PERCENT AUTO 1 % (0-1); LYMPHOCYTES ABSOLUTE AUTO 1.41 K/mm3 (0.84-5.20); LYMPHOCYTES PERCENT AUTO 14 % (21-46); MONOCYTES ABSOLUTE AUTO 1.64 K/mm3 (0.16-1.47); MONOCYTES PERCENT AUTO 17 % (4-13); Mean Corpuscular HGB 31.1 pg (26.0-34.0); Mean Corpuscular HGB Conc 33.2 g/dL (31.5-36.5); Mean Corpuscular Volume 93 fL (80-100); Mean Platelet Volume 11.4 fL (9.1-12.4); NEUTROPHILS ABSOLUTE AUTO 6.59 K/mm3 (1.96-9.15); NEUTROPHILS PERCENT AUTO 67 % (41-73); Platelet Count 124 K/mm3 (150-400); RDW Coefficient Variation 16.1 % (11.7-14.2); RDW Standard Deviation 55.5 fL (35.1-46.3); Red Blood Cell Count 4.09 M/mm3 (3.80-5.20); White Blood Cell Count 9.79 K/mm3 (4.00-11.30)
[2020-11-30 18:04] LABS: Albumin, Blood 2.8 g/dL (3.4-5.0); Albumin/Globulin Ratio 0.8 (0.8-1.8); Creatinine, Blood 1.57 mg/dL (0.40-1.00); Globulin, Blood 3.7 g/dL (2.2-4.0); Potassium, Blood 3.9 mmol/L (3.5-5.5); Total Protein, Blood 6.5 g/dL (6.4-8.2)
[2020-11-30] MEDS ORDERED: IPRAT-ALBUT 0.5-3 ML INH (18:07)
[2020-11-30] MEDS ORDERED: ZOFRAN4 MG PO (18:08)
[2020-11-30] MEDS ORDERED: LEVO750 PO (18:55)
[2020-11-30] MEDS ORDERED: DEXA6 PO (18:55)
[2020-12-01] MEDS ORDERED: Monodox100 MG PO (10:52)
== END 2020-11-30 21:36 | disposition home or self-care (01) ==
LOC: ER 17:24
PROVIDERS: Student in an Organized Health Care Education/Training Program
DX: U07.1 COVID-19 (principal); J12.82 Pneumonia due to coronavirus disease 2019; R09.02 Hypoxemia; I11.0 Hypertensive heart disease with heart failure; I50.32 Chronic diastolic (congestive) heart failure; J44.9 Chronic obstructive pulmonary disease, unspecified; Z99.81 Dependence on supplemental oxygen; Z79.01 Long term (current) use of anticoagulants; Z79.899 Other long term (current) drug therapy; Z79.890 Hormone replacement therapy; Z85.3 Personal history of malignant neoplasm of breast; Z85.118 Personal history of other malignant neoplasm of bronchus and lung; Z85.828 Personal history of other malignant neoplasm of skin; Z95.0 Presence of cardiac pacemaker; Z88.5 Allergy status to narcotic agent
CPT/HCPCS: 71045; 80053; 84484; 85025; 85379; 93005; 93010; 96365; 96366; 99285-25; J1956

== ENCOUNTER 2020-12-06 18:28 | Inpatient (IN) | payer MEDICARE, OTHER ==
[~2020-12-06] VITALS: Ht 162.6 cm; Wt 117.9 kg
[~2020-12-06 18:28] MED LIST changes: +DEXA6 PO; +IPRAT-ALBUT 0.5-3 ML INH; +Monodox100 MG PO; +ZOFRAN4 MG PO
[2020-12-06 19:58] LABS: BASOPHILS ABSOLUTE AUTO 0.02 K/mm3 (0.00-0.23); BASOPHILS PERCENT AUTO 0 % (0-2); EOSINOPHILS PERCENT AUTO 0 % (0-6); Hematocrit 38.7 % (33.0-51.0); Hemoglobin 12.8 g/dL (11.5-16.0); IMMATURE GRAN ABSOLUTE AUTO 0.33 K/mm3 (0.00-0.10); IMMATURE GRAN PERCENT AUTO 3 % (0-1); LYMPHOCYTES ABSOLUTE AUTO 0.49 K/mm3 (0.84-5.20); LYMPHOCYTES PERCENT AUTO 4 % (21-46); MONOCYTES ABSOLUTE AUTO 0.58 K/mm3 (0.16-1.47); MONOCYTES PERCENT AUTO 5 % (4-13); Mean Corpuscular HGB 31.2 pg (26.0-34.0); Mean Corpuscular HGB Conc 33.1 g/dL (31.5-36.5); Mean Corpuscular Volume 94 fL (80-100); Mean Platelet Volume 11.6 fL (9.1-12.4); NEUTROPHILS ABSOLUTE AUTO 11.47 K/mm3 (1.96-9.15); NEUTROPHILS PERCENT AUTO 89 % (41-73); NRBC ABSOLUTE 0.02 K/mm3 (0.00-0.02); NRBC Auto 0.2 /100 WBC (0.0-0.2); Platelet Count 114 K/mm3 (150-400); RDW Coefficient Variation 16.6 % (11.7-14.2); RDW Standard Deviation 57.1 fL (35.1-46.3); White Blood Cell Count 12.89 K/mm3 (4.00-11.30)
[2020-12-06 20:16] LABS: Alanine Aminotransfer (ALT/SGP 39 U/L (12-78); Albumin, Blood 2.7 g/dL (3.4-5.0); Albumin/Globulin Ratio 0.7 (0.8-1.8); Alk Phos 142 U/L (50-136); Anion Gap 4 mmol/L (6-16); Aspartate Aminotrans (AST/SGOT 45 U/L (12-37); Bilirubin, Total 1.5 mg/dL (0.1-1.0); Blood Urea Nitrogen 41 mg/dL (8-24); Bun/Creatinine Ratio 29.3 (12.0-20.0); CO2, Blood 31 mmol/L (21-32); Calcium, Blood 8.7 mg/dL (8.5-10.1); Chloride, Blood 104 mmol/L (98-108); Globulin, Blood 3.9 g/dL (2.2-4.0); Glomerular Filtration Rate 36 (60-); Glucose, Blood 119 mg/dL (70-99); Potassium, Blood 4.2 mmol/L (3.5-5.5); Sodium, Blood 139 mmol/L (136-145); Total Protein, Blood 6.6 g/dL (6.4-8.2); Troponin I <0.015 ng/mL (0.000-0.040)
[2020-12-06] MEDS ORDERED: FLUC150A PO (22:57)
[2020-12-06] MEDS ORDERED: Tenex1 MG PO (22:58)
[2020-12-06] MEDS ORDERED: CEPH250A PO (23:02)
[2020-12-07 06:00] LABS: BASOPHILS ABSOLUTE AUTO 0.02 K/mm3 (0.00-0.23); BASOPHILS PERCENT AUTO 0 % (0-2); EOSINOPHILS ABSOLUTE AUTO 0.01 K/mm3 (0.00-0.68); EOSINOPHILS PERCENT AUTO 0 % (0-6); Hemoglobin 11.2 g/dL (11.5-16.0); IMMATURE GRAN ABSOLUTE AUTO 0.22 K/mm3 (0.00-0.10); IMMATURE GRAN PERCENT AUTO 2 % (0-1); LYMPHOCYTES PERCENT AUTO 5 % (21-46); MONOCYTES ABSOLUTE AUTO 0.45 K/mm3 (0.16-1.47); MONOCYTES PERCENT AUTO 4 % (4-13); Mean Corpuscular HGB 31.5 pg (26.0-34.0); Mean Corpuscular HGB Conc 32.9 g/dL (31.5-36.5); Mean Corpuscular Volume 96 fL (80-100); NEUTROPHILS ABSOLUTE AUTO 9.24 K/mm3 (1.96-9.15); NEUTROPHILS PERCENT AUTO 89 % (41-73); Platelet Count 95 K/mm3 (150-400); RDW Coefficient Variation 16.7 % (11.7-14.2); RDW Standard Deviation 58.8 fL (35.1-46.3); Red Blood Cell Count 3.56 M/mm3 (3.80-5.20); White Blood Cell Count 10.44 K/mm3 (4.00-11.30)
[2020-12-07 06:23] LABS: Bun/Creatinine Ratio 25.7 (12.0-20.0); Calcium, Blood 7.8 mg/dL (8.5-10.1); Creatinine, Blood 1.36 mg/dL (0.40-1.00)
--- NOTE | 2020-12-07 07:37 | NUR ---
SHIFT SUMMARY PT WAS A NEW ADMIT DURING THE NIGHT, ARRIVING ON THE FLOOR AT 0006. SHE WAS ADMITTED FOR PNA R/T COVID-19. SHE IS A&O X 3, BEDREST D/T DESATTING WITH ANY EXERTION. CURRENTLY ON 10L O2 VIA OXYMIZER. NO C/O ACUTE PAIN OR NAUSEA. VITAL SIGNS STABLE. NO ACUTE CHANGES IN PT CONDITION NOTED SINCE ADMISSION TO THE FLOOR. WILL CONTINUE TO MONITOR AND TREAT PER EMAR UNTIL HAND OFF TO DAY SHIFT RN.
--- NOTE | 2020-12-07 17:09 | NUR ---
PT IS A/O4, PLEASANT AND COOPERATIVE, THE PT IS UP WITH ASSIST, HOWEVER TO SHE WAS BEDREST DUE TO SEVERE SOB. PHYSICAL THERAPIST ELECTED TO NOT EVAL HER TODAY DUE TO THE SOB, THE PT THIS AM WAS UP TO 10L/MIN O2 VIA OXYMIZER, THIS AFTERNOON THE PT WAS TITRATED DOWN BY THE RT TO 8L/MIN VIA OXYMIZER. THE PT HAS BEEN COUGHING UP A SMALL AMOUNT OF THICK BROWN SPUTUM. THE PT APPEARS SOB AT REST. THE PT WAS MEDICATED FOR HEADACH AND BURNING CHEST PAIN WITH COUGHING X2 TODAY SO FAR. THE PT HAS SCHEDULED COUGH SUPPRESANT ORDERED. THE PT WAS GIVEN MOM FOR BOWEL CARE TODAY. CALL LIGHT I REACH, WILL CONTINUE TO MONITOR AND ASSESS FOR CHANGES
--- NOTE | 2020-12-08 03:08 | NUR ---
CALLED TO ROOM BY PIPE FITTER. O2 SATS IN THE 70'S ON 8 L VIA OXYMIZER. PT PLACED ON 15 L VIA NRB TO GET O2 SATS UP TO 90%. RT CALLED AND STATED WILL COME UP TO ASSESS PT AND PLACE ON CONTIUOUS BIOX.
[2020-12-08 06:13] LABS: Anion Gap 3 mmol/L (6-16); Blood Urea Nitrogen 28 mg/dL (8-24); Bun/Creatinine Ratio 23.5 (12.0-20.0); CO2, Blood 31 mmol/L (21-32); Calcium, Blood 8.1 mg/dL (8.5-10.1); Chloride, Blood 107 mmol/L (98-108); Creatinine, Blood 1.19 mg/dL (0.40-1.00); Glomerular Filtration Rate 43 (60-); Glucose, Blood 101 mg/dL (70-99); Phosphorus, Blood 2.1 mg/dL (2.5-4.9); Sodium, Blood 141 mmol/L (136-145)
--- NOTE | 2020-12-08 18:40 | NUR ---
SHIFT SUMMARY PT IS AO AND PLEASANT. PT DENIES N/V, PAIN. PT SATS GREATER THAN 90% ON 15 L HIGH FLOW NC AND NONREBREATHER MASK. ENHANCED ISOLATION PRECAUTIONS MAINTAINED T/O SHIFT. PT IS ON STRICT BEDREST DUE TO SATS FALLING TO 79% WITH ALMOST ANY MOVEMENT. PT APPETITE IS POOR. PT IS IN BED, CALL LIGHT IN REACH, LOW POSITION.
[2020-12-08 20:03] LABS: Source, Urine Catheter
[2020-12-08 20:08] LABS: Appearance, Urine Clear (Clear); Bilirubin, Urine Neg (Neg); Blood, Urine Neg (Neg); Color, Urine Yellow (P-Yellow); Glucose Qualitative, Urine Neg (Neg); Ketones, Urine Neg (Neg); Leukocyte Esterase, Urine 1+ (Neg); Nitrite, Urine Neg (Neg); Protein, Urine 2+ (Neg); Specific Gravity, Urine 1.015 (1.003-1.022); Urobilinogen, Urine NORM (Normal)
[2020-12-08 20:16] LABS: Bacteria Rare /hpf; Red Blood Cells, Urine 0-2 /hpf (0-2); Squamous Epithelial Cells Rare /hpf (Few); White Blood Cells, Urine Rare /hpf (0-5)
--- NOTE | 2020-12-09 04:55 | NUR ---
SHIFT SUMMARY TRACEY PLACED THIS SHIFT D/T DESATS W/ANY ACTIVITY, CURRENTLY ON AIRVO 60L @ 90% W/15L NRB OVERTOP, ATTEMPTED TO PLACE ON BIPAP-PT BECAME TOO ANXIOUS AND TEARFUL STATING THAT SHE WAS UNABLE TO TOLERATE, SLEEPING AT THIS TIME, CALL LIGHT IN REACH, WILL CONT TO MONITOR UNTIL REPORT GIVEN TO DAY RN.
[2020-12-09 06:30] LABS: Albumin, Blood 1.8 g/dL (3.4-5.0); Anion Gap 5 mmol/L (6-16); Blood Urea Nitrogen 29 mg/dL (8-24); Bun/Creatinine Ratio 24.2 (12.0-20.0); CO2, Blood 27 mmol/L (21-32); Calcium, Blood 8.1 mg/dL (8.5-10.1); Chloride, Blood 106 mmol/L (98-108); Glomerular Filtration Rate 43 (60-); Glucose, Blood 92 mg/dL (70-99); Phosphorus, Blood 3.1 mg/dL (2.5-4.9); Potassium, Blood 4.3 mmol/L (3.5-5.5); Sodium, Blood 138 mmol/L (136-145)
--- NOTE | 2020-12-09 07:05 | NUR ---
ASSUMED CARE RECEIVED REPORT FROM TANVI BHATTI. PT RESTING, IN NAD. O2 SATS WNL ON AIRVO- 60L/89 % FIO2. NO ACUTE NEEDS ASSESSED AT THIS TIME. CALL LIGHT, POSSESSIONS IN REACH. WCTM.
[2020-12-09 08:21] LABS: BASOPHILS ABSOLUTE AUTO 0.03 K/mm3 (0.00-0.23); BASOPHILS PERCENT AUTO 0 % (0-2); EOSINOPHILS ABSOLUTE AUTO 0.04 K/mm3 (0.00-0.68); EOSINOPHILS PERCENT AUTO 0 % (0-6); Hemoglobin 11.6 g/dL (11.5-16.0); IMMATURE GRAN ABSOLUTE AUTO 0.14 K/mm3 (0.00-0.10); IMMATURE GRAN PERCENT AUTO 1 % (0-1); LYMPHOCYTES PERCENT AUTO 5 % (21-46); MONOCYTES ABSOLUTE AUTO 0.45 K/mm3 (0.16-1.47); MONOCYTES PERCENT AUTO 3 % (4-13); Mean Corpuscular HGB 31.2 pg (26.0-34.0); Mean Corpuscular HGB Conc 33.1 g/dL (31.5-36.5); Mean Corpuscular Volume 94 fL (80-100); Mean Platelet Volume 11.8 fL (9.1-12.4); NEUTROPHILS ABSOLUTE AUTO 12.37 K/mm3 (1.96-9.15); NEUTROPHILS PERCENT AUTO 90 % (41-73); Platelet Count 77 K/mm3 (150-400); RDW Coefficient Variation 16.3 % (11.7-14.2); RDW Standard Deviation 57.1 fL (35.1-46.3); Red Blood Cell Count 3.72 M/mm3 (3.80-5.20); White Blood Cell Count 13.73 K/mm3 (4.00-11.30)
--- NOTE | 2020-12-09 10:23 | NUR ---
DR. CASTELLON AT THE BEDSIDE, ROUNDING ON PT. SPOKE TO PT REGARDING O2 NEEDS AND BARRIERS TO BIPAP USE, PT STATES SHE BECOMES VERY ANXIOUS WHEN BIPAP IS APPLIED, AND IS UNABLE TO TOLERATE IT WELL, BECOMES CLAUSTROPHOBIC. AGREEABLE TO USE OF MEDICATION TO HELP WITH TOLERANCE. VERBAL ORDERS RECEIVED AND ENTERED INTO [employer].
--- NOTE | 2020-12-09 13:20 | NUR ---
Palliative care consult placed today, as pt is a Covid positive pt who is not tolerating bipap. She is currently on high-flow oxygen, as the bipap causes her severe anxiety, but also drops her oxygen sats down into the low 70's. The pt is alert and oriented. She is using accessory muscles and working hard to breath. I very clearly asked her if she has agreed to comfort care, and explained that while it will help her relax and feel less air hunger, it will not prevent her . She states, "I'm ready to go when the Lord says it's time". I asked if she feels scared, or has any reservations, she stated, "No". Her is also in the room, and he understands what this means as well. He asked that he be able to be near her. The bedside nurse is working on getting him over beside her. Dr. Cooper agreeable to comfort care. Orders placed.
--- NOTE | 2020-12-09 14:45 | NUR ---
TRANSFER OF CARE REPORT GIVEN TO TANVI RODAS. PT ON COMFORT CARE, FAMILY AT THE BEDSIDE. REMAINS ON AIRVO, 91% FIO2, 60L/O2. APPEARS COMFORTABLE. NO ACUTE NEEDS ASSESSED AT THIS TIME. CALL LIGHT AND POSSESSIONS IN REACH.
--- NOTE | 2020-12-10 04:58 | NUR ---
SHIFT SUMMARY PT ABLE TO MAKE NEEDS KNOWN, COMFORT CARE MEASURES IN PLACE. AIRVO D/C'D DURING THIS SHIFT. O2 VIA NC FOR COMFORT. SL OXYCODONE GIVEN. MORPHINE D/C'D D/T PT ALLERGY. FAMILY AT BEDSIDE. WILL CONTINUE TO MONITOR AND REPORT TO ONCOMING RN.
--- NOTE | 2020-12-10 10:22 | NUR ---
PATIENT REQUESTING PAIN MEDICATIONS, MEDICATED WITH OXYCODONE SL. BEGINNING TO HAVE MORE SECRETION, SCOPALAMINE PATCH ORDERED FROM PHARMACY. FAMILY AT BEDSIDE. PATIENT TO D/C HOME ON HOSPICE AT 1230.
[2020-12-10] MEDS ORDERED: ATROPINE SULFATE2 M1 SL (11:52)
[2020-12-10] MEDS ORDERED: ROBITUSSIN DM PO (11:54)
[2020-12-10] MEDS ORDERED: TRANSDERM-SCOP1 EAC1 TD (11:55)
[2020-12-10] MEDS ORDERED: MIRALAX17 GM PO (11:55)
--- NOTE | 2020-12-10 12:10 | NUR ---
PATIENT D/C'D HOME WITH [place]. FAMILY GIVEN D/C PACKET AND MEDICATIONS SENT TO [facility] [place]. HARD SCRIPT MEDICATIONS WERE GIVEN TO FAMILY. PATIENT AND FAMILY DENY ANY FURTHER QUESTIONS OR CONCERNS. ALL DME WILL BE DELEIVERED TO THE HOME THIS AFTERNOON.
== END 2020-12-10 12:38 | disposition hospice, home (50) | DRG 177 ==
LOC: ER 18:28 → MEDS 21:48
PROVIDERS: Internal Medicine; Nurse Practitioner Acute Care; Physician Assistant; ADMIT Hospitalist
DX: J15.6 Pneumonia due to other Gram-negative bacteria (principal); J96.21 Acute and chronic respiratory failure with hypoxia; I50.32 Chronic diastolic (congestive) heart failure; J44.1 Chronic obstructive pulmonary disease with (acute) exacerbation; J44.0 Chronic obstructive pulmonary disease with (acute) lower respiratory infection; Z66 Do not resuscitate; E66.01 Morbid (severe) obesity due to excess calories; I48.0 Paroxysmal atrial fibrillation; G47.33 Obstructive sleep apnea (adult) (pediatric); E83.39 Other disorders of phosphorus metabolism; K59.00 Constipation, unspecified; N18.30 Chronic kidney disease, stage 3 unspecified; E03.9 Hypothyroidism, unspecified; Z86.16 Personal history of COVID-19; Z86.73 Personal history of transient ischemic attack (TIA), and cerebral infarction without residual deficits; Z90.49 Acquired absence of other specified parts of digestive tract; Z98.891 History of uterine scar from previous surgery; Z90.710 Acquired absence of both cervix and uterus; Z95.0 Presence of cardiac pacemaker; Z90.89 Acquired absence of other organs; Z88.6 Allergy status to analgesic agent; Z79.899 Other long term (current) drug therapy
CPT/HCPCS: 36415; 71045; 71250; 80048; 80053; 80069; 81001; 83605; 84145; 84484; 85025; 87040; 93005; 93010; 94640; 94660; 94762; 96365; 96366; 96367; 97110; 97161; 99285-25; A9270; J0692; J1650; J2543; J3370; J7030; J7050; J7060